=== PATIENT | female | born 1990 | race Caucasian/White ===

== ENCOUNTER → 2021-10-25 | Day surgery (SDC) | payer OTHER ==
[~2021-10-25] VITALS: Ht 165.1 cm; Wt 63.0 kg
[~2021-10-25] MED LIST: ASPIRIN325 MG PO; BUSPIRONE HCL7.5 MG PO; COLACE100 MG PO; COREG25 MG PO; COZAAR100 MG PO; IBUPROFEN800 M1 PO; ONDANSETRON ODT4 MG PO; PERCOCET 5-3251 EACH PO
[2021-10-25 08:40] LABS: HCG (URINE) SCREEN NEGATIVE (NEGATIVE)
[2021-10-25 09:14] LABS: HCT 37.5 % (37.0-47.0); HGB 11.9 g/dl (12.5-16.0); MCH 28.3 pg (25.0-31.0); MCHC 31.7 g/dL (32.0-36.0); MCV 89.3 fL (78.0-100.0); MPV 9.2 fL (6.0-9.5); RBC 4.2 M/uL (4.20-5.40); RDW 16.4 % (11.5-14.0); WBC 8.3 K/uL (4.0-10.5)
[2021-10-25 09:35] LABS: BUN/CREAT RATIO (CALC) 10.4 RATIO; CREATININE 0.67 mg/dL (0.51-0.95); POTASSIUM 3.7 mmol/L (3.5-5.1)
== END | disposition home or self-care (01) ==
LOC: FAS 08:18
PROVIDERS: Obstetrics & Gynecology
DX: N87.1 Moderate cervical dysplasia (principal); N93.9 Abnormal uterine and vaginal bleeding, unspecified; N80.0 Endometriosis of uterus; I12.9 Hypertensive chronic kidney disease with stage 1 through stage 4 chronic kidney disease, or unspecified chronic kidney disease; N18.30 Chronic kidney disease, stage 3 unspecified; J45.909 Unspecified asthma, uncomplicated; K21.9 Gastro-esophageal reflux disease without esophagitis; F17.210 Nicotine dependence, cigarettes, uncomplicated; Z98.51 Tubal ligation status; Z86.73 Personal history of transient ischemic attack (TIA), and cerebral infarction without residual deficits; Z88.0 Allergy status to penicillin; Z88.5 Allergy status to narcotic agent; Z79.82 Long term (current) use of aspirin; Z79.899 Other long term (current) drug therapy; Z80.8 Family history of malignant neoplasm of other organs or systems
CPT/HCPCS: 36415; 80048; 84703; 86850; 86900; 86901; 88341; 88342; J1100; J1170; J1885; J1940; J1956; J2250; J2405; J3010; J7120